=== PATIENT | male | born 1945 | race Caucasian/White ===

== ENCOUNTER 2019-12-03 11:32 | Inpatient (IN) | payer OTHER ==
[~2019-12-03] VITALS: Ht 152.4 cm; Wt 88.5 kg
[2019-12-03 11:35] VITALS: BP 168/96
[2019-12-03] MEDS ORDERED: ASA81BEC PO (12:01)
[2019-12-03 12:02] LABS: HEMATOCRIT 44.4 % (42.0-52.0); HEMOGLOBIN 14.4 gm/dL (14.0-18.0); MCHC 32.4 g/dL (28.0-37.0); MCV 83.3 fL (80.0-100.0); PLATELET COUNT 216 thou/uL (150-400); RBC 5.33 mil/uL (4.50-6.00); RDW 14.6 % (10.5-14.5); WBC 10.8 thou/uL (4.0-11.0)
[2019-12-03 12:11] LABS: ANION GAP 7 mmol/L (7-16); BUN 20 mg/dL (7-18); CALCIUM 9.3 mg/dL (8.5-10.1); CHLORIDE 101 mmol/L (98-107); CO2 30 mmol/L (21-32); CREATININE 1.3 mg/dL (0.7-1.3); GLUCOSE 118 mg/dL (74-106); POTASSIUM 3.6 mmol/L (3.5-5.1); SODIUM 138 mmol/L (136-145)
[2019-12-03 12:20] LABS: ALBUMIN 2.9 g/dL (3.4-5.0); SGOT 24 U/L (15-37); SGPT 32 U/L (30-65); TOTAL BILIRUBIN 0.5 mg/dL (<0.1-1.0); TOTAL PROTEIN 7.4 g/dL (6.4-8.2); TROPONIN-I <0.06 ng/mL (<0.06)
--- NOTE | 2019-12-03 12:34 | NUR ---
PT GAVE VERBAL PERMISSION TO CALL HIS DAUGHTER TO TRY AN OBTAIN A LIST OF HIS CURRENT MEDICATIONS AND PHARMACY.
[2019-12-03 12:49] LABS: ABSOLUTE NEUTROPHILS 8.6 thou/uL (1.4-8.2); ATYPICAL LYMPHS 1 %
[2019-12-03] MEDS ORDERED: NORVASC 2.5 MG2.5 M1 PO (13:01)
[2019-12-03] MEDS ORDERED: LISINOPRIL-HCT1 EAC2 PO ×2 (13:01→13:02)
[2019-12-03 13:06] VITALS: BP 170/100
--- NOTE | 2019-12-03 14:35 | NUR ---
Pt back from CT at this time.
[2019-12-03 15:34] VITALS: BP 154/82; BP 180/103
[2019-12-03 16:10] VITALS: BP 170/86
[2019-12-03 18:06] VITALS: BP 150/70
--- NOTE | 2019-12-03 19:17 | NUR ---
pt admitted from ER for R/O COVID and pleural effusion, pt is A&OX3, BUT PT IS FORGETFUL, RN HAS CALLED [facility]OSPITAL DR TO GET ADMITTED ORDER, PT IS CONTINUING IV ABX, AND STARTS MEDICATION FOR HIGH BP, PT DOES NOT HAVE SOB AND FEVER BY THIS TIME, RN HAS REPORTED TO NEXT SHIFT TO KEEP EYE ON PT.
[2019-12-03 20:35] VITALS: BP 160/75
[2019-12-04] VITALS (7 sets, daily range): BP systolic 140–168; BP diastolic 74–88
[2019-12-04 05:33] LABS: HEMATOCRIT 44.2 % (42.0-52.0); HEMOGLOBIN 14.4 gm/dL (14.0-18.0); MCH 26.9 pg (26.0-34.0); MCHC 32.7 g/dL (28.0-37.0); MCV 82.4 fL (80.0-100.0); RBC 5.36 mil/uL (4.50-6.00); RDW 15.1 % (10.5-14.5); WBC 12.3 thou/uL (4.0-11.0)
[2019-12-04 05:46] LABS: CALCIUM 9.2 mg/dL (8.5-10.1); CREATININE 1.1 mg/dL (0.7-1.3); POTASSIUM 3.8 mmol/L (3.5-5.1)
--- NOTE | 2019-12-04 08:34 | EKG ---
[facility] [place] [address] ELECTROCARDIOGRAM REPORT Name: ZAYNAB SHI Room #: 359-P ADM IN M.R.#: [id number] Admission: 12/03/19 Attend Phys: Nitin Rios MD Discharge: Date of : 41 Report #: [id number] THIS REPORT FOR: cc: FAM - Family physician unknown FAM - Family physician unknown Yovany Cevallos MD [facility] ~ THIS REPORT FOR: //name// [facility] ED Test Date: 2019-12-03 Test Time: 11:32:05 Pat Name: ZAYNAB SHI Department: Room: [facility] Gender: M [employer]ra[employer]ile Maker: DANICA : 1945 Requested By: Laila Linder Order Number: [id number] MD: Yovany Cevallos Measurements Intervals [place] Rate: 107 P: 46 MI: 185 QRS: -36 QRSD: 98 T: 52 QT: 356 QTc: 475 Interpretive Statements Sinus tachycardia Left axis deviation Abnormal R-wave progression, late transition No previous ECG available for comparison Electronically Signed On 12-04-2019 8:33:20 CDT by Yovany Cevallos [email or web address] <ELECTRONICALLY SIGNED> By: Yovany Cevallos MD, FACC 12/04/19 0833 1132 1132 Yovany Cevallos MD, [facility] /EPI
--- NOTE | 2019-12-04 13:56 | NUR ---
INITIAL ASSESSMENT: ANGELITA reviewed chart and spoke with nursing and attending physician. Pt was admitted from home due to pneumonia/pleural effusion. Pt is currently in Enhanced Isolation to r/o COVID-19. Pt currently on room air. SW spoke with pt via phone. Introduced role of SW. Pt states he lives at home alone and uses a walker. Pt unable to recall name of PCP or location of where he lives. Pt gave consent for SW to contact his dtr, Marsha ([phone]) to provide update. ANGELITA spoke with Marsha via phone. Introduced role of ANGELITA. Pt with hx of dementia. Pt lives alone in a studio apt at [facility] in [place]. Pt has been using a walker. Pt has elevator access if needed. No steps to navigate. Pt was not on O2 prior to admission. Pt's PCP is Dr. Magan Orozco in [place]. Pt has been to [facility] last fall after his hip fracture. Pt has not used HH in the past. Pt's facility does have additional services available if needed. Pt will need therapy evals once COVID results are available. SW is following to assist as needed with discharge planning.
--- NOTE | 2019-12-04 17:54 | NUR ---
Assumed care approx 0700. Pt alert and oriented x4. Pt tolerating being on room air. No signs of respiratory distress this shift. Pt does have episodes of confusion. Pt's dtr, Alma, updated on pt's status this shift. Alma reports that pt has Dementia and failed his last cognitive exam. Pt expresses that he wants to go home. Has fears of "dying here and not at home". Pt is under the impression that he is getting several biopsies, including his "heart and gut". Did discuss his concerns and explained his purpose of being here. Pt responded well to discussion. IV antibiotics given per orders. COVID-[address] Rios notified. Pt's blood sugar elevated from morning accucheck. Pt declined lunch and dinner due to not being hungry. Dr. Rios notified and orders given to place pt on low dose ss and ACHS accuchecks. Pt slowly progressing towards plan of care goals. Will continue to monitor.
--- NOTE | 2019-12-04 22:37 | NUR ---
REPORT GIVEN TO CELESTINO SEYMOUR. PT TO BE TRANSFERED TO ROOM 448 VIA BED.
[2019-12-05] VITALS (7 sets, daily range): BP systolic 134–138; BP diastolic 69–82
--- NOTE | 2019-12-05 04:22 | NUR ---
RECIEVED CARE OF THIS PATIENT AROUND 2245 FROM 3W. PATIENT ALERT AND ORIENTED X4. PATIENT WAS RULED OUT FOR COVID-19. PATIENT UP TO BSC WITH WALKER. NOT SCORED A FALL RISK BUT KNOWS OWN LIMITS AND SAYS SOMETIMES HE FEELS UNSTEADY. PIV IN BOTH FA. DENIES PAIN. SLEPT OFF AND ON DURING NIGHT. ACCUCHECK DOWN ON 3W WAS 124.
--- NOTE | 2019-12-05 10:08 | NUR ---
PT REFUSED TO SIGN MEDICAID APPLICATION FORMS FOR HUMAN [employer].
[2019-12-05] MEDS ORDERED: LEVAQUIN 500 M500 M3 PO (10:51)
--- NOTE | 2019-12-05 13:42 | NUR ---
FAXED REFERRAL TO [facility] SPOKE WITH AQUILINO IN INTAKE SHE RECEIVED REFERRAL AND CAN ACCEPT PT TO DC TODAY. FAXED DC ORDERS/SUMMARY RECEIVED CONFIRMATION AND AQUILINO WITH [facility] WILL NOTIFY PT TIME OF VISITS.
--- NOTE | 2019-12-05 13:48 | NUR ---
CARE TEAM INDICATED THAT PT IS MEDICALLY STABLE TO DISCHARGE HOME THIS DAY. THEY RECOMMENDED THAT PT HAVE HOME HEALTH SERVICES UPON [place]. CM SPOKE WITH PT'S DTR CRYSTAL SHE INDICATED THAT PT HADN'T HAD HH IN THE PAST AND THAT THEY DON'T HAVE A PREFERENCE FOR PROVIDER. CM CALLED PT'S FACILITY [facility] AND THEY INDICATED THAT THEY USE AGING IN PLACE. CM CALLED SOMEONE NAMED TO SEE IF THEY PROVIDE PT, OT, NURSING THROUGH MEDICARE AND RECEIVED NO ANSWER. CM SENT REFERRAL TO [facility]. THEY ARE ABLE TO ACCEPT PT. PT'S DTR TO PROVIDE TRANSPORT HOME. NO OTHER CM INTERVENTION INDICATED. CASE CLOSED.
--- NOTE | 2019-12-05 16:12 | NUR ---
PT IS AOX4, VSS, IV IN BOTH FOREARMS PATENT/SL. PT IS UP WITH WALKER, ONE PERSON ASSIST WHEN NEEDED. PT CALLS APPROPRIATELY. APPETITE IS FAIR. NO C/O PAIN. PT RECEIVED DISCHARGE INSTRUCTIONS TO GO HOME WITH HOME HEALTH. IV'S REMOVED BEFORE PT LEFT. DAUGHTER PICKED PT UP TO TAKE HOME.
== END 2019-12-05 15:30 | disposition home health service (06) | DRG 193 ==
LOC: ER 11:32 → 3W 14:45 → EROBS 14:45 → 4S 14:45 → 3W 15:34 → 4S 12-04 22:56
PROVIDERS: Physician Assistant; ADMIT Hospitalist
DX: J18.8 Other pneumonia, unspecified organism (principal); J96.01 Acute respiratory failure with hypoxia; R91.8 Other nonspecific abnormal finding of lung field; R59.1 Generalized enlarged lymph nodes; I10 Essential (primary) hypertension; E78.00 Pure hypercholesterolemia, unspecified; E11.9 Type 2 diabetes mellitus without complications; J98.4 Other disorders of lung; I25.10 Atherosclerotic heart disease of native coronary artery without angina pectoris; J44.9 Chronic obstructive pulmonary disease, unspecified; Z20.828 Contact with and (suspected) exposure to other viral communicable diseases; Z60.2 Problems related to living alone; G47.00 Insomnia, unspecified; Z95.5 Presence of coronary angioplasty implant and graft; I25.2 Old myocardial infarction; Z87.891 Personal history of nicotine dependence; Z79.82 Long term (current) use of aspirin; Z79.899 Other long term (current) drug therapy; Z86.73 Personal history of transient ischemic attack (TIA), and cerebral infarction without residual deficits; Z82.49 Family history of ischemic heart disease and other diseases of the circulatory system; Z82.5 Family history of asthma and other chronic lower respiratory diseases
CPT/HCPCS: 10080; 10102

== ENCOUNTER → 2020-01-29 | Outpatient (CLI) | payer OTHER ==
[~2020-01-29] MED LIST: ASA81BEC PO; LEVAQUIN 500 M500 M3 PO; LISINOPRIL-HCT1 EAC2 PO; NORVASC 2.5 MG2.5 M1 PO
== END ==
LOC: CAT 01-22 20:44
PROVIDERS: ATTEND Pediatrics
DX: J90 Pleural effusion, not elsewhere classified (principal); R91.8 Other nonspecific abnormal finding of lung field; I25.10 Atherosclerotic heart disease of native coronary artery without angina pectoris

== ENCOUNTER → 2020-02-15 | Outpatient (CLI) | payer OTHER | LOC: LAB 08:00 | PROVIDERS: ATTEND Family Medicine | DX: Z01.818 Encounter for other preprocedural examination (principal); Z11.59 Encounter for screening for other viral diseases ==

== ENCOUNTER → 2020-04-19 | Outpatient (CLI) | payer OTHER | LOC: LAB 04-17 09:42 | PROVIDERS: ATTEND Pediatrics | DX: Z01.812 Encounter for preprocedural laboratory examination (principal); Z20.828 Contact with and (suspected) exposure to other viral communicable diseases ==